=== PATIENT | female | born 1935 | race Caucasian/White ===

== ENCOUNTER 2019-05-05 21:23 | Emergency (ER) | payer MEDICARE ==
[2019-05-05] MEDS ORDERED: Acetaminophen 500 MG TAB ONE (21:50)
[2019-05-05] MEDS ORDERED: cloNIDine 0.1 MG TAB ONE (21:50)
--- NOTE | 2019-05-08 13:37 | EKG ---
Test Reason : Blood Pressure : / mmHG Vent. Rate : 071 BPM Atrial Rate : 071 BPM P-R Int : 160 ms QRS Dur : 090 ms QT Int : 422 ms P-R-T Axes : 040 -11 010 degrees QTc Int : 458 ms Normal sinus rhythm Low voltage QRS Inferior infarct , age undetermined Abnormal ECG Confirmed by KAREN CAMPOVERDE ([id number]), commissioning editor ESTEBAN ROBERTSON ([id number]) on 05/08/2019 1:37:38 PM Referred By: Confirmed By:KAREN CAMPOVERDE
== END 2019-05-05 23:45 | disposition home or self-care (01) ==
LOC: ERS 21:23
DX: I10 Essential (primary) hypertension (principal); H11.32 Conjunctival hemorrhage, left eye; K21.9 Gastro-esophageal reflux disease without esophagitis; Z79.899 Other long term (current) drug therapy
CPT/HCPCS: 93005

== ENCOUNTER 2022-09-15 15:29 | Observation (INO) | payer OTHER, MEDICARE ==
[~2022-09-15 15:29] MED LIST: Iopamidol-370 76% 500 ML 1 ML ONE
[2022-09-15 16:32] LABS: #Basophils 0.1 thou/uL (0.0-0.2); #Eosinphils 0.1 thou/uL (0.0-0.7); #Lymphocytes 1.7 thou/uL (1.20-3.40); #Monocytes 0.7 thou/uL (0.11-0.59); #Neutrophils 4.7 thou/uL (1.40-6.50); %Basophils 0.8 % (0.0-1.0); %Eosinophils 1.9 % (0.0-10.0); %Lymphocytes 23.6 % (21.0-51.0); %Neutrophils 64.6 % (42.0-75.0); Hemoglobin 13.6 g/dL (12.0-16.0); Mean Corpuscular HGB CONC 34.1 g/dL (32.0-36.0); Mean Corpuscular Hemoglobin 33.9 pg (27.0-31.0); Mean Corpuscular Volume 99.2 fl (78.0-98.0); Platelet Count 335 10x3/uL (130-400); RBC Distribution Width 11.6 % (11.5-14.5); Red Blood Cell (RBC) Count 4.03 mill/uL (4.20-5.40); White Blood Cell (WBC) Count 7.3 10x3/uL (4.8-10.8)
[2022-09-15] MEDS ORDERED: HYDROcodone/Acetaminophen 5/325 mg Tablet ONE (16:37)
[2022-09-15 16:55] LABS: ALT (SGPT) 12 U/L (8-55); AST (SGOT) 21 U/L (5-34); Alkaline Phosphatase 64 U/L (40-110); Anion Gap 16 mmol/L (10-20); BUN (Urea Nitrogen) 9 mg/dL (9.8-20.1); Bilirubin, Total 0.6 mg/dL (0.2-1.2); CK (CPK) 64 U/L (29-168); Calc. Creatinine Clearance 0 mL/min (70-130); Calcium 9.1 mg/dL (7.8-10.44); Carbon Dioxide 26 mmol/L (23-31); Chloride 103 mmol/L (98-107); Estimated GFR 60; Globulin 3.1 g/dL (2.4-3.5); Glucose 96 mg/dL (83-110); Potassium 3.8 mmol/L (3.5-5.1); Protein, Total 7.1 g/dL (5.8-8.1); Sodium 141 mmol/L (136-145)
[2022-09-15] MEDS ORDERED: Nitroglycerin 0.4 MG TAB 1 EACH ONE (18:36)
[2022-09-15] MEDS ORDERED: Acetaminophen 325 MG TAB PO PRN (20:52)
[2022-09-15] MEDS ORDERED: Ondansetron PF 4 MG/2 ML Vial IVP PRN (20:52)
[2022-09-15] MEDS ORDERED: traMADol HCl 50 MG TAB PO PRN (21:12)
[2022-09-15] MEDS ORDERED: Nitroglycerin 0.4 MG TAB (25 Tab Bottle) SL PRN (21:13)
[2022-09-15] MEDS ORDERED: hydrALAZINE 20 MG/ML VIAL ONE (21:21)
[2022-09-15] MEDS ORDERED: Aspirin Chewable 81 MG TAB ONE (21:30)
[2022-09-15 22:59] LABS: SARS-CoV-2 NAA Rapid Test DETECTED (NotDetected)
[2022-09-16 00:03] LABS: Troponin I 0.016 ng/mL (< 0.028)
[2022-09-16 04:28] LABS: #Eosinphils 0.2 thou/uL (0.0-0.7); #Lymphocytes 1.6 thou/uL (1.20-3.40); #Monocytes 0.7 thou/uL (0.11-0.59); #Neutrophils 5.9 thou/uL (1.40-6.50); %Basophils 0.6 % (0.0-1.0); %Eosinophils 1.9 % (0.0-10.0); %Monocytes 8.3 % (0.0-10.0); %Neutrophils 70.2 % (42.0-75.0); Mean Corpuscular Hemoglobin 33.4 pg (27.0-31.0); Mean Corpuscular Volume 98.2 fl (78.0-98.0); Mean Platelet Volume 7.2 fL (7.4-10.4); Platelet Count 317 10x3/uL (130-400); RBC Distribution Width 11.7 % (11.5-14.5); White Blood Cell (WBC) Count 8.4 10x3/uL (4.8-10.8)
[2022-09-16 04:47] LABS: Anion Gap 15 mmol/L (10-20); BUN (Urea Nitrogen) 7 mg/dL (9.8-20.1); Calc. Creatinine Clearance 0 mL/min (70-130); Calcium 9.4 mg/dL (7.8-10.44); Carbon Dioxide 26 mmol/L (23-31); Cardiac Risk 4.5 (Less than 4.5); Chloride 103 mmol/L (98-107); Cholesterol 272 mg/dl (< 200 Desired); Estimated GFR 69; Glucose 96 mg/dL (83-110); HDL Cholesterol 60 mg/dL (>60 Neg Risk); LDL Cholesterol, Calculated 186 mg/dL; Potassium 3.1 mmol/L (3.5-5.1); Sodium 141 mmol/L (136-145); Triglycerides 129 mg/dL (Less than 150)
[2022-09-16] MEDS ORDERED: Levothyroxine Sodium 88 MCG TAB PO SCH (09:00)
[2022-09-16] MEDS: Losartan 25 MG TAB PO SCH (09:10)
[2022-09-16 16:23] VITALS: BMI 24.7
[2022-09-16] MEDS ORDERED: FLU VACC QS2022-23(65YR UP)/PF 240 MCG/0.7 ML SYRINGE IM ONE (16:30)
[2022-09-16] MEDS ORDERED: Potassium Bicarbonate/Cit Ac 20 MEQ TAB PO SCH (20:00)
[2022-09-17 05:02] LABS: #Basophils 0.1 thou/uL (0.0-0.2); #Eosinphils 0.2 thou/uL (0.0-0.7); #Monocytes 0.7 thou/uL (0.11-0.59); #Neutrophils 3.6 thou/uL (1.40-6.50); %Basophils 0.9 % (0.0-1.0); %Eosinophils 3.7 % (0.0-10.0); %Lymphocytes 30.3 % (21.0-51.0); %Monocytes 10.1 % (0.0-10.0); Hemoglobin 13.2 g/dL (12.0-16.0); Mean Corpuscular HGB CONC 33.1 g/dL (32.0-36.0); Mean Corpuscular Hemoglobin 32.8 pg (27.0-31.0); Mean Corpuscular Volume 99.1 fl (78.0-98.0); Mean Platelet Volume 7.3 fL (7.4-10.4); Platelet Count 319 10x3/uL (130-400); RBC Distribution Width 11.8 % (11.5-14.5); Red Blood Cell (RBC) Count 4.03 mill/uL (4.20-5.40); White Blood Cell (WBC) Count 6.6 10x3/uL (4.8-10.8)
[2022-09-17 05:25] LABS: Anion Gap 13 mmol/L (10-20); BUN (Urea Nitrogen) 13 mg/dL (9.8-20.1); Calc. Creatinine Clearance 50 mL/min (70-130); Calcium 8.8 mg/dL (7.8-10.44); Carbon Dioxide 28 mmol/L (23-31); Chloride 104 mmol/L (98-107); Estimated GFR 67; Glucose 88 mg/dL (83-110); Potassium 3.7 mmol/L (3.5-5.1); Sodium 141 mmol/L (136-145)
[2022-09-17] MEDS ORDERED: Levothyroxine Sodium 88 MCG TAB PO SCH (06:00)
[2022-09-17 10:40] VITALS: TEMP 98.8
[2022-09-17] MEDS: Losartan 25 MG TAB PO SCH (10:40)
[2022-09-17] MEDS ORDERED: Regadenoson 0.4 MG/5 ML SYRINGE ONE (11:08)
[2022-09-17 16:34] VITALS: BP 165/73
== END 2022-09-17 17:10 | disposition home or self-care (01) ==
LOC: ERS 15:29 → ERHOLD 20:52 → 2SW 09-16 15:00
PROVIDERS: ADMIT Internal Medicine; ATTEND Physician Assistant
DX: R07.89 Other chest pain (principal); S22.051A Stable burst fracture of T5-T6 vertebra, initial encounter for closed fracture; I10 Essential (primary) hypertension; N28.9 Disorder of kidney and ureter, unspecified; U07.1 COVID-19; K21.9 Gastro-esophageal reflux disease without esophagitis; M19.90 Unspecified osteoarthritis, unspecified site; I70.0 Atherosclerosis of aorta; K44.9 Diaphragmatic hernia without obstruction or gangrene; K57.30 Diverticulosis of large intestine without perforation or abscess without bleeding; K80.20 Calculus of gallbladder without cholecystitis without obstruction; E78.00 Pure hypercholesterolemia, unspecified; E03.9 Hypothyroidism, unspecified; I07.1 Rheumatic tricuspid insufficiency; I25.10 Atherosclerotic heart disease of native coronary artery without angina pectoris; Z79.890 Hormone replacement therapy; Z79.899 Other long term (current) drug therapy; Z88.2 Allergy status to sulfonamides; W01.0XXA Fall on same level from slipping, tripping and stumbling without subsequent striking against object, initial encounter
CPT/HCPCS: 71045; 71275; 74174; 78452; 80048 ×2; 80053; 80061; 82550; 84443; 84484 ×3; 85025 ×3; 93005; 93017; 93306; 96374; 99285; A9500; G0378 ×4; J0360; U0002; 36415; J2785; Q9967